=== PATIENT | female | born 1965 | race Caucasian/White ===

== ENCOUNTER 2020-07-27 14:35 | Emergency (ER) | payer MEDICAID, SELFPAY ==
[2020-07-27 14:45] VITALS: BP 133/72; PULSE 95; RESP 17; TEMP 36.8; O2SAT 100; BMI 36.6
--- NOTE | 2020-07-27 15:16 | XR_ITS ---
EXAMINATION: XR CHEST CLINICAL INFORMATION: Nausea, vomiting, and upper abdominal pain COMPARISON: Chest radiograph 01/13/2019 TECHNIQUE: Frontal view of the chest was obtained. FINDINGS: Normal cardiomediastinal silhouette. Mild hypoinflation of the lungs. No focal consolidation. No pleural effusion or pneumothorax. No acute osseous abnormality. IMPRESSION: No acute disease within the chest.
--- NOTE | 2020-07-27 15:17 | ECG_ITS ---
Test Reason : VOMITTING Blood Pressure : / mmHG Vent. Rate : 082 BPM Atrial Rate : 082 BPM P-R Int : 140 ms QRS Dur : 078 ms QT Int : 358 ms P-R-T Axes : 053 024 022 degrees QTc Int : 418 ms Normal sinus rhythm Normal ECG When compared with ECG of 13-JAN-2019 10:29, T wave inversion no longer evident in Anterior leads Referred By: Savanna Rosenberg Electronically Signed By:AZAEL PIZANO MD
--- NOTE | 2020-07-27 15:17 | CT_ITS ---
EXAMINATION: CT ABDOMEN AND PELVIS WITH CONTRAST CLINICAL INFORMATION: pt c n/v and upper abd pain c black stools x 2 weeks COMPARISON: 03/31/2019 TECHNIQUE: Multidetector volumetric imaging was performed from the superior aspect of the liver through the pubic symphysis following administration of 85 cc of Omnipaque intravenous contrast Sagittal and coronal reformatted images were obtained on the technologist workstation.. This CT examination was performed using dose optimization techniques as appropriate, variously including the following: *Automated exposure control *Adjustment of mA and/or kV according to patient size (this includes techniques or standardized protocols for targeted exams where dose is matched to indication/reason for exam; i.e. extremities or head) *Use of iterative reconstruction technique DLP: 784 mGy-cm FINDINGS: LUNG BASES: Minimal dependent atelectasis. Small hiatal hernia. LIVER, GALLBLADDER, AND BILIARY TREE: The liver is normal in size, shape, and attenuation. No focal hepatic lesion or biliary ductal dilatation is present. Gallbladder surgically absent. PANCREAS: Unremarkable. SPLEEN: Unremarkable. ADRENAL GLANDS: Unremarkable. KIDNEYS AND URETERS: The kidneys are normal in size, shape, and attenuation. No hydronephrosis, hydroureter, or calculi seen. No perinephric stranding. BLADDER: Unremarkable. GASTROINTESTINAL TRACT: The small and large bowel are unremarkable. The appendix is unremarkable. ABDOMINAL WALL: No significant hernia is appreciated. LYMPHOVASCULAR STRUCTURES: No lymphadenopathy. The aorta is unremarkable. PELVIC VISCERA: Surgically absent OSSEOUS STRUCTURES: Unremarkable. IMPRESSION: No acute intra-abdominal process seen. No acute abnormality seen within the visualized bowel. Chronic appearing and postoperative changes as described.
--- NOTE | 2020-07-27 16:30 | PC.NURSE ---
RN AT BEDSIDE ATTEMPTING IV ACCESS THROUGH ULTRA SOUND GUIDE, TWO ATTEMPTS UNSUCCESSFUL. WILL CONTINUE TO TRY FOR ACCESS.
[2020-07-27 16:34] LABS: Appearance Urine CLEAR; Color Urine YELLOW; Glucose Urine UA NEG (NEG); Leukocyte Esterase Urine NEG (NEG); Nitrite Urine NEG (NEG); PH 5.5 (5.0-8.0); Specific Gravity - Urine 1.025 (1.005-1.025); Urine Blood NEG (NEG); Urine Ketones NEG (NEG); Urine Protein NEG (NEG-TRACE)
--- NOTE | 2020-07-27 16:43 | ED_ITS ---
HPI - Abdominal Pain General Chief Complaint: Nausea/Vomiting/Diarrhea Stated Complaint: vomiting blood Time Seen by Provider: 07/27/20 14:59 Source: patient Mode of arrival: ambulatory Limitations: no limitations History of Present Illness HPI narrative: 55yoF c PMHx of gastric ulcers, abnormal liver enzymes, diabetes, hypertension and seizure disorder presenting to the ED with complaints of nausea vomiting and upper abdominal pain with associated black colored stools for the past 2 weeks. Reports she was recently seen at [facility] and only had IV blood work done no imaging. Denies being on any blood thinners. Related Data Previous Rx's Medication Instructions Recorded omeprazole 40 mg PO DAILY #30 cap 07/27/20 ondansetron HCl [Zofran] 4 mg PO Q6H PRN #10 tab 07/27/20 oxycodone 5 mg PO Q8H PRN #10 tab 07/27/20 Allergies Allergy/AdvReac Type Severity Reaction Status Date / Time azithromycin [Azithromycin] Allergy Severe ANGIOEDEMA Verified 07/27/20 18:05 Xanthines [XANTHINES] Allergy Intermediate UNKNOWN Verified 07/27/20 18:05 divalproex sodium Allergy Mild RASH Verified 07/27/20 18:05 [From Depakote] sumatriptan [From Imitrex] Allergy Mild RASH Verified 07/27/20 18:05 acetaminophen Allergy Unknown ANGIOEDEMA Verified 07/27/20 18:05 [From Darvocet-N 100] Barbiturates [BARBITURATES] Allergy Unknown UNKNOWN Verified 07/27/20 18:05 butalbital [From Fioricet] Allergy Unknown RASH Verified 07/27/20 18:05 caffeine [From Fioricet] Allergy Unknown RASH Verified 07/27/20 18:05 codeine [Codeine] Allergy Unknown RASH Verified 07/27/20 18:05 dichloralphenazone Allergy Unknown ANGIOEDEMA Verified 07/27/20 18:05 [From MIDRIN] dihydrocodeine Allergy Unknown UNKNOWN Verified 07/27/20 18:05 [From PANLOR SS] gabapentin [GABAPENTIN] Allergy Unknown UNKNOWN Verified 07/27/20 18:05 latex [Latex] Allergy Unknown RASH Verified 07/27/20 18:05 levetiracetam [From KEPPRA] Allergy Unknown UNKNOWN Verified 07/27/20 18:05 metoprolol [From LOPRESSOR] Allergy Unknown UNKNOWN Verified 07/27/20 18:05 mirtazapine [From REMERON] Allergy Unknown UNKNOWN Verified 07/27/20 18:05 nitrofurantoin Allergy Unknown UNKNOWN Verified 07/27/20 18:05 [From MACROBID] phenytoin [From DILANTIN] Allergy Unknown UNKNOWN Verified 07/27/20 18:05 prednisone [PREDNISONE] Allergy Unknown UNKNOWN Verified 07/27/20 18:05 quetiapine [From SEROQUEL] Allergy Unknown HALLUCINATI Verified 07/27/20 18:05 ONS sulfamethoxazole Allergy Unknown UNKNOWN Verified 07/27/20 18:05 [From BACTRIM] topiramate [From TOPAMAX] Allergy Unknown UNKNOWN Verified 07/27/20 18:05 trimethoprim [From BACTRIM] Allergy Unknown UNKNOWN Verified 07/27/20 18:05 zinc [From MEDIZINC] Allergy Unknown UNKNOWN Verified 07/27/20 18:05 ibuprofen [From Motrin] AdvReac Mild GI BLEED Verified 07/27/20 18:05 naproxen [Naproxen] AdvReac Mild GI BLEED Verified 07/27/20 18:05 aspirin [Aspirin] AdvReac Unknown GI BLEED Verified 07/27/20 18:05 From Imitrex Allergy Mild RASH Uncoded 06/27/20 15:56 From Compazine Allergy Unknown ANGIOEDEMA Uncoded 06/27/20 15:56 From Darvocet-N 100 Allergy Unknown ANGIOEDEMA Uncoded 06/27/20 15:56 From DHE Allergy Unknown ANAPHYLAXIS Uncoded 06/27/20 15:56 From Flexeril Allergy Unknown CHEST PAIN Uncoded 06/27/20 15:56 From MIDRIN Allergy Unknown ANGIOEDEMA Uncoded 06/27/20 15:56 From Reglan Allergy Unknown ANGIOEDEMA Uncoded 06/27/20 15:56 From Toradol Allergy Unknown ANGIOEDEMA Uncoded 06/27/20 15:56 From Ultram Allergy Unknown RASH Uncoded 06/27/20 15:56 SULFATE Allergy Unknown UNKNOWN Uncoded 06/27/20 15:56 Review of Systems Review of Systems Constitutional : No Weight loss, No Fever, No Chills, No Night Sweats, No Fatigue, No Malaise ENT/Mouth: No ear pain, No sore throat, No Difficulty swallowing Cardiovascular : No Chest Pain, No SOB, No Dyspnea on Exertion, No Orthopnea, No Edema, No Palpitations Respiratory : No Cough, No Sputum, No Wheezing, No Dyspnea Gastrointestinal : No Diarrhea, No Hematochezia Genitourinary : No irregular bleeding, No Dysuria, No Urinary Frequency, No Hematuria, No Urinary Incontinence, No Urgency, No Flank Pain Musculoskeletal : No joint pain, No Myalgias, No Joint Swelling Skin : No Skin Lesions, No rash Neuro : No Weakness, No Numbness, No Paresthesias, No Loss of Consciousness, No Dizziness, No Headache Psych : No Social Issues, Heme/Lymph: No Bruising, No Bleeding,No Lymphadenopathy Endocrine : No Polyuria, No Polydipsia, No Temperature Intolerance Yes all other systems are reviewed and are negative Physical Exam Vital Signs: Vital Signs: Vital Signs Temp Pulse Resp BP Pulse Ox 07/27/20 17:11 18 07/27/20 17:08 98.8 F 77 18 133/67 100 07/27/20 14:45 98.3 F 95 17 133/72 100 Body Mass Index 36.6 Vital signs have been reviewed as normal and appeared to be correct. Blood pressure normal. Heart rate normal. Respiration rate normal. Temperature normal. Oxygen saturation normal. Appearance: Alert. Oriented X3. No acute distress. Head: Normal external exam. Normocephalic. Atraumatic. No West signs noted. No raccoon eyes noted Eyes: PERRLA. EOMI. Conjunctiva and sclera normal. Eyelids normal. ENT: EAC normal. TM's Normal. Pharynx normal. Uvula midline. Moist mucous membranes. No trismus noted. No drooling noted. No muffled voice noted. Neck: Normal inspection. Neck supple. FROM. No adenopathy. Thyroid Normal. No meningeal signs. No neck mass noted. CVS: Normal heart rate and rhythm. Heart sound normal. No murmurs noted. Pulses normal throughout. Respiratory: No respiratory distress. Painless inspiration. Breath sounds normal. No wheezes/rales/rhonchi noted. Chest nontender. No accessory muscle usage noted or decreased air movement noted. Abdomen: Soft. TTP of upper abdomen. Bowel sounds normal in all 4 quadrants. No distention noted. No organomegaly noted. No visible injury noted. Back: No CVA tenderness. Full range of motion noted. Skin: Skin warm and dry. Normal skin color. Normal skin turgor. No rashes/lesions/lacerations noted. Extremities: No lower extremity edema. Extremities exhibit normal range of motion. Extremities nontender. Neuro: Oriented X 3. No motor deficit. No sensory deficit. Reflexes normal. Course Course Course Narrative: 55yoF c PMHx of gastric ulcers, abnormal liver enzymes, diabetes, hypertension and seizure disorder presenting to the ED with complaints of nausea vomiting and upper abdominal pain with associated black colored stools for the past 2 weeks. - Plan: Labs, CT scan of abd/pelvis c IV contrast. Perform a stool occult. Then provide GI cocktail and 4 mg of zofran and 4 mg of morphine. then re-evaluate. Reevaluation(s) Reevaluation #1: All labs within normal limits. CT scan within normal limits no acute processes noted. EKG normal sinus rhythm no acute ischemic changes noted. Chest x-ray within normal limits no acute processes noted. Patient is now tolerating p.o. at this time. Will DC home with symptomatic treatment along with instructions return if any new or worsening symptoms and to follow-up with her GI and her PCP. Patient understands agrees with this plan. MDM - Abdominal Pain MDM Narrative Medical decision making narrative: Gastric ulcer vs Viral syndrome vs Diverticulitis Medical Records Attestation: I reviewed the patient's medical records. Lab Data Attestation: I reviewed the patient's lab results. Result diagrams: 07/27/20 16:55 07/27/20 16:27 Labs: Lab Results 07/27/20 07/27/20 07/27/20 Range/Units 16:27 16:27 16:27 WBC (4.8-10.8) X10*3/uL RBC (4.20-5.50) X10*6/uL Hgb (12.0-16.0) g/dl Hct (37-47) % MCV (80-98) fL MCH (27.0-33.0) pg MCHC (31.0-35.0) g/dl RDW (11.0-16.0) % Plt Count (160-400) X10*3/uL MPV (9.4-12.3) fL Immature Gran % (Auto) (0.0-0.4) % Neut % (Auto) (45-73) % Lymph % (Auto) (20-40) % Harrison % (Auto) (2-11) % Eos % (Auto) (0-4) % Baso % (Auto) (0-2) % Lymph # (Auto) (1.2-4.9) X10*3/uL Harrison # (Auto) (0.1-1.2) X10*3/uL Eos # (Auto) (0.0-0.4) X10*3/uL Baso # (Auto) (0.0-0.2) X10*3/uL Abs Immat Gran (auto) (0.00-0.03) X10*3/uL Absolute Neuts (auto) (2.0-8.3) X10*3/uL Absolute Nucleated RBC (0.0-0.012) X10*3/uL Nucleated RBC % (auto) (0.0-0.2) /100WBC PT (10.8-13.0) SEC INR (0.9-1.1) Sodium 140 (135-145) mmol/L Potassium 4.2 (3.3-5.1) mmol/l Chloride 108 (96-108) mmol/L Carbon Dioxide 23 (22-29) mmol/L Anion Gap 13 (12-20) BUN 14 (9-16) mg/dL Creatinine 0.80 (0.5-1.4) mg/dL Estim Creat Clear Calc 85.3 Estimated GFR > 60 Random Glucose 82 (60-115) mg/dL Calcium 9.2 (8.4-10.2) mg/dL Magnesium 2.1 (1.6-2.6) mg/dL Total Bilirubin 0.4 (0.0-1.0) mg/dL Direct Bilirubin < 0.2 (0.0-0.5) mg/dL AST 15 (5-31) U/L ALT 15 (0-31) U/L Alkaline Phosphatase 119 H (39-117) U/L Troponin I High Sens (<3.5-17.0) ng/L Total Protein 7.2 (6.5-8.0) g/dL Albumin 4.1 (3.5-5.0) g/dL Lipase 73 (8-78) U/L Urine Color YELLOW Urine Appearance CLEAR Urine pH 5.5 (5.0-8.0) Ur Specific [place] 1.025 (1.005-1.025) Urine Protein NEG (NEG-TRACE) MG/DL Urine Glucose (UA) NEG (NEG) MG/DL Urine Ketones NEG (NEG) MG/DL Urine Blood NEG (NEG) Urine Nitrite NEG (NEG) Ur Leukocyte Esterase NEG (NEG) Stool Occult Blood (NEG) 07/27/20 07/27/20 07/27/20 Range/Units 16:27 16:55 16:55 WBC 7.5 (4.8-10.8) X10*3/uL RBC 4.74 (4.20-5.50) X10*6/uL Hgb 13.2 (12.0-16.0) g/dl Hct 41.3 (37-47) % MCV 87.1 (80-98) fL MCH 27.8 (27.0-33.0) pg MCHC 32.0 (31.0-35.0) g/dl RDW 14.3 (11.0-16.0) % Plt Count 258 (160-400) X10*3/uL MPV 12.0 (9.4-12.3) fL Immature Gran % (Auto) 0.1 (0.0-0.4) % Neut % (Auto) 56.5 (45-73) % Lymph % (Auto) 30.4 (20-40) % Harrison % (Auto) 7.3 (2-11) % Eos % (Auto) 4.9 H (0-4) % Baso % (Auto) 0.8 (0-2) % Lymph # (Auto) 2.3 (1.2-4.9) X10*3/uL Harrison # (Auto) 0.6 (0.1-1.2) X10*3/uL Eos # (Auto) 0.4 (0.0-0.4) X10*3/uL Baso # (Auto) 0.1 (0.0-0.2) X10*3/uL Abs Immat Gran (auto) 0.01 (0.00-0.03) X10*3/uL Absolute Neuts (auto) 4.3 (2.0-8.3) X10*3/uL Absolute Nucleated RBC 0.000 (0.0-0.012) X10*3/uL Nucleated RBC % (auto) 0.0 (0.0-0.2) /100WBC PT 13.1 H (10.8-13.0) SEC INR 1.1 (0.9-1.1) Sodium (135-145) mmol/L Potassium (3.3-5.1) mmol/l Chloride (96-108) mmol/L Carbon Dioxide (22-29) mmol/L Anion Gap (12-20) BUN (9-16) mg/dL Creatinine (0.5-1.4) mg/dL Estim Creat Clear Calc Estimated GFR Random Glucose (60-115) mg/dL Calcium (8.4-10.2) mg/dL Magnesium (1.6-2.6) mg/dL Total Bilirubin (0.0-1.0) mg/dL Direct Bilirubin (0.0-0.5) mg/dL AST (5-31) U/L ALT (0-31) U/L Alkaline Phosphatase (39-117) U/L Troponin I High Sens < 3.5 (<3.5-17.0) ng/L Total Protein (6.5-8.0) g/dL Albumin (3.5-5.0) g/dL Lipase (8-78) U/L Urine Color Urine Appearance Urine pH (5.0-8.0) Ur Specific [place] (1.005-1.025) Urine Protein (NEG-TRACE) MG/DL Urine Glucose (UA) (NEG) MG/DL Urine Ketones (NEG) MG/DL Urine Blood (NEG) Urine Nitrite (NEG) Ur Leukocyte Esterase (NEG) Stool Occult Blood (NEG) 07/27/20 Range/Units 17:13 WBC (4.8-10.8) X10*3/uL RBC (4.20-5.50) X10*6/uL Hgb (12.0-16.0) g/dl Hct (37-47) % MCV (80-98) fL MCH (27.0-33.0) pg MCHC (31.0-35.0) g/dl RDW (11.0-16.0) % Plt Count (160-400) X10*3/uL MPV (9.4-12.3) fL Immature Gran % (Auto) (0.0-0.4) % Neut % (Auto) (45-73) % Lymph % (Auto) (20-40) % Harrison % (Auto) (2-11) % Eos % (Auto) (0-4) % Baso % (Auto) (0-2) % Lymph # (Auto) (1.2-4.9) X10*3/uL Harrison # (Auto) (0.1-1.2) X10*3/uL Eos # (Auto) (0.0-0.4) X10*3/uL Baso # (Auto) (0.0-0.2) X10*3/uL Abs Immat Gran (auto) (0.00-0.03) X10*3/uL Absolute Neuts (auto) (2.0-8.3) X10*3/uL Absolute Nucleated RBC (0.0-0.012) X10*3/uL Nucleated RBC % (auto) (0.0-0.2) /100WBC PT (10.8-13.0) SEC INR (0.9-1.1) Sodium (135-145) mmol/L Potassium (3.3-5.1) mmol/l Chloride (96-108) mmol/L Carbon Dioxide (22-29) mmol/L Anion Gap (12-20) BUN (9-16) mg/dL Creatinine (0.5-1.4) mg/dL Estim Creat Clear Calc Estimated GFR Random Glucose (60-115) mg/dL Calcium (8.4-10.2) mg/dL Magnesium (1.6-2.6) mg/dL Total Bilirubin (0.0-1.0) mg/dL Direct Bilirubin (0.0-0.5) mg/dL AST (5-31) U/L ALT (0-31) U/L Alkaline Phosphatase (39-117) U/L Troponin I High Sens (<3.5-17.0) ng/L Total Protein (6.5-8.0) g/dL Albumin (3.5-5.0) g/dL Lipase (8-78) U/L Urine Color Urine Appearance Urine pH (5.0-8.0) Ur Specific [place] (1.005-1.025) Urine Protein (NEG-TRACE) MG/DL Urine Glucose (UA) (NEG) MG/DL Urine Ketones (NEG) MG/DL Urine Blood (NEG) Urine Nitrite (NEG) Ur Leukocyte Esterase (NEG) Stool Occult Blood NEG (NEG) Imaging Data CT scan - abdomen: Attestation: I personally reviewed and interpreted this imaging study as follows: Radiologist's impression: IMPRESSION: No acute intra-abdominal process seen. No acute abnormality seen within the visualized bowel. Chronic appearing and postoperative changes as described. Chest x-ray: Attestation: I personally reviewed and interpreted this imaging study as follows: Radiologist's impression: IMPRESSION: No acute disease within the chest. ECG Data Attestation: I personally reviewed and interpreted this ECG as follows: ECG interpretation date: 07/27/20 ECG interpretation time: 15:27 Prior ECG tracings: available for review Interpretation: EKG with normal sinus rhythm with a ventricular rate of 82 with a normal PA interval and normal QRS duration with a normal QT/ QTC interval. No ST elevations or depressions. No acute ischemic changes. similar compared to the January of 2019 EKG. Discharge Plan Discharge Clinical Impression: Gastric ulcer Patient Disposition: Home, Self-Care Instructions: Diet for Stomach Ulcers and Gastritis (ED) Additional Instructions: Follow-up with your primary care provider and medical pathologist and return if any new or worsening symptoms. Prescriptions: New oxycodone 5 mg tablet 5 mg PO Q8H PRN (Reason: pain) Qty: 10 RF: 0 omeprazole 40 mg capsule,delayed release(DR/EC) 40 mg PO DAILY Qty: 30 RF: 0 ondansetron HCl [Zofran] 4 mg tablet 4 mg PO Q6H PRN (Reason: nausea and vomiting) Qty: 10 RF: 0 Discharge Date/Time: 07/27/20 18:53 Print Language: Martiniquais [facility] Past Medical History Attestation statement: The following information was validated with the patient. Medical History Abnormal liver enzymes Diabetes Gastric ulcer HTN (hypertension) Seizure Social History Social History Alcohol intake: never Smoking Status: Never smoker Use of substances other than those prescribed or required for medical reasons: Yes Substance Use Type: Marijuana Advance Directives: No Advance Directives Information Provided: No
[2020-07-27 17:00] LABS: Alanine Aminotransferase 15 U/L (0-31); Albumin Level 4.1 g/dL (3.5-5.0); Alkaline Phosphatase 119 U/L (39-117); Anion Gap 13 (12-20); Aspartate Amino Transferase 15 U/L (5-31); Bilirubin Direct < 0.2 mg/dL (0.0-0.5); Bilirubin Total 0.4 mg/dL (0.0-1.0); Blood Urea Nitrogen 14 mg/dL (9-16); Calcium 9.2 mg/dL (8.4-10.2); Carbon Dioxide 23 mmol/L (22-29); Chloride 108 mmol/L (96-108); Creatinine Clr Calc Pharmacy 85.3; Estimated Glomerular Filt Rate > 60; Glucose Random 82 mg/dL (60-115); Lipase 73 U/L (8-78); Magnesium 2.1 mg/dL (1.6-2.6); Potassium 4.2 mmol/l (3.3-5.1); Sodium 140 mmol/L (135-145); Total Protein 7.2 g/dL (6.5-8.0)
[2020-07-27] MEDS: ondansetron HCL 4 MG/2 ML VIAL IVPUSH (17:00)
[2020-07-27] MEDS: Famotidine/PF 20 MG/2 ML VIAL IVPUSH (17:00)
[2020-07-27] MEDS: 0.9 % Sodium Chloride 1,000 ML 999 ML IVCONT (17:00)
[2020-07-27 17:01] LABS: MANUAL DIFF FLAG NO
[2020-07-27 17:02] LABS: Basophils Absolute Auto 0.1 X10*3/uL (0.0-0.2); Basophils Percent Auto 0.8 % (0-2); Eosinophils Absolute Auto 0.4 X10*3/uL (0.0-0.4); Eosinophils Percent Auto 4.9 % (0-4); Hematocrit 41.3 % (37-47); Hemoglobin 13.2 g/dl (12.0-16.0); Imm Gran Abs Auto 0.01 X10*3/uL (0.00-0.03); Imm Gran Pct Auto 0.1 % (0.0-0.4); Lymphocytes Absolute Auto 2.3 X10*3/uL (1.2-4.9); Lymphocytes Percent Auto 30.4 % (20-40); Mean Corpuscular Hemoglobin 27.8 pg (27.0-33.0); Mean Corpuscular Volume 87.1 fL (80-98); Monocytes Absolute Auto 0.6 X10*3/uL (0.1-1.2); Monocytes Percent Auto 7.3 % (2-11); Neutrophils Absolute Auto 4.3 X10*3/uL (2.0-8.3); Neutrophils Percent Auto 56.5 % (45-73); Platelet Count 258 X10*3/uL (160-400); Red Blood Count 4.74 X10*6/uL (4.20-5.50); Red Cell Distribution Width 14.3 % (11.0-16.0); White Blood Count 7.5 X10*3/uL (4.8-10.8)
[2020-07-27 17:06] LABS: Troponin-I High Sensitivity < 3.5 ng/L (<3.5-17.0)
[2020-07-27 17:08] VITALS: BP 133/67; PULSE 77; RESP 18; TEMP 37.1; O2SAT 100
[2020-07-27 17:09] LABS: INTERNATIONAL NORM RATIO 1.1 (0.9-1.1); Prothrombin Time 13.1 SEC (10.8-13.0)
[2020-07-27 17:11] VITALS: RESP 18
[2020-07-27] MEDS: Morphine Sulfate 4 MG/ML CARTRIDGE IVPUSH (17:11)
[2020-07-27 17:18] LABS: OBS1 NEG (NEG)
[2020-07-27 17:19] LABS: OBS Int Ctl Valid YES
[2020-07-27] MEDS: iohexoL 350 MG/ML 100 ML INFUS..BTL IV (17:43)
--- NOTE | 2020-07-27 18:13 | PC.NURSE ---
pt workup unremarkable, shukri hoff in to update pt on plan of care. pt to be discharged home w meds.
[2020-07-27] MEDS: oxyCODONE HCl Immed Release 5 MG TABLET PO (18:46)
== END 2020-07-27 18:53 | disposition home or self-care (01) ==
PROVIDERS: Physician Assistant Medical; Emergency Provider Emergency Medicine
DX: K25.9 Gastric ulcer, unspecified as acute or chronic, without hemorrhage or perforation (principal); E11.9 Type 2 diabetes mellitus without complications; I10 Essential (primary) hypertension; F12.90 Cannabis use, unspecified, uncomplicated; Z79.899 Other long term (current) drug therapy
CPT/HCPCS: 36415; 71045; 74177; 80048; 80076; 81003; 82272; 83690; 83735; 84484; 85025; 85610; 93005; 96361; 96374; 96375; 99284; J2270; J2405; J2765

== ENCOUNTER 2020-07-31 12:23 | Emergency (ER) | payer MEDICAID, SELFPAY ==
[2020-07-31] VITALS (7 sets, daily range): BP systolic 114–133; BP diastolic 58–76; PULSE 79–88; RESP 16–78; TEMP 36.1–36.8; O2SAT 97–100; BMI 32.9; BMI 34.7
--- NOTE | 2020-07-31 16:26 | CT_ITS ---
EXAMINATION: CT ABDOMEN AND PELVIS WITHOUT CONTRAST CLINICAL INFORMATION: 55-year-old female patient with right lower quadrant abdominal pain. COMPARISON: CT of the abdomen and pelvis performed 4 days ago. (No acute). TECHNIQUE: Multidetector volumetric imaging was performed from the superior aspect of the liver through the pubic symphysis. Sagittal and coronal reformatted images were obtained on the technologist's workstation. This CT examination was performed using dose optimization techniques as appropriate, variously including the following: *Automated exposure control *Adjustment of mA and/or kV according to patient size (this includes techniques or standardized protocols for targeted exams where dose is matched to indication/reason for exam; i.e. extremities or head) *Use of iterative reconstruction technique DLP: 793 mGy-cm FINDINGS: AIRLINE COUNTER AGENT: There is no evidence of intestinal obstruction. Patient's gallbladder has been surgically removed. There is increased burden of formed stool in the right and transverse colon. LUNG BASES: The visualized lung bases are unremarkable. There is a small hiatal hernia containing fat and tiny lymph nodes. LIVER, GALLBLADDER, AND BILIARY TREE: The liver is normal in size, shape, and attenuation. No focal hepatic lesion or biliary ductal dilatation is present. The gallbladder has been surgically removed. PANCREAS: Unremarkable. SPLEEN: Unremarkable. ADRENAL GLANDS: Unremarkable. KIDNEYS AND URETERS: The kidneys are normal in size, shape, and attenuation. No hydronephrosis, hydroureter, or calculi seen. No perinephric stranding. BLADDER: Unremarkable. GASTROINTESTINAL TRACT: The small and large bowel are unremarkable. No inflammatory disease is seen in the vicinity of the right lower quadrant. ABDOMINAL WALL: No significant hernia is appreciated. LYMPH NODES: Normal. Small mesenteric nodes are present in the right lower quadrant. VASCULAR: Unremarkable. PELVIC VISCERA: Uterus has been removed. OSSEOUS STRUCTURES: An hemangioma is located in the vertebral body at T11. IMPRESSION: Increased burden of formed stool in the right and transverse colon.
--- NOTE | 2020-07-31 16:32 | ED.ABDPAIN ---
HPI - Abdominal Pain General Chief Complaint: Abdominal Pain Stated Complaint: abd pain Time Seen by Provider: 07/31/20 16:25 Source: patient Mode of arrival: ambulatory Limitations: no limitations History of Present Illness HPI narrative: 55 years old female came in today with abdominal pain for the past 3 weeks, and then having nausea, vomiting, patient also been taking Maalox and reporting black stool. Patient was seen in the emergency department last week and was evaluated for same symptoms with a negative workup. Related Data Previous Rx's Medication Instructions Recorded omeprazole 40 mg PO DAILY #30 cap 07/27/20 ondansetron HCl [Zofran] 4 mg PO Q6H PRN #10 tab 07/27/20 oxycodone 5 mg PO Q8H PRN #10 tab 07/27/20 oxycodone 5 mg PO BID PRN #7 cap 07/31/20 Allergies Allergy/AdvReac Type Severity Reaction Status Date / Time azithromycin [Azithromycin] Allergy Severe ANGIOEDEMA Verified 07/27/20 18:05 Xanthines [XANTHINES] Allergy Intermediate UNKNOWN Verified 07/27/20 18:05 divalproex sodium Allergy Mild RASH Verified 07/27/20 18:05 [From Depakote] sumatriptan [From Imitrex] Allergy Mild RASH Verified 07/27/20 18:05 acetaminophen Allergy Unknown ANGIOEDEMA Verified 07/27/20 18:05 [From Darvocet-N 100] Barbiturates [BARBITURATES] Allergy Unknown UNKNOWN Verified 07/27/20 18:05 butalbital [From Fioricet] Allergy Unknown RASH Verified 07/27/20 18:05 caffeine [From Fioricet] Allergy Unknown RASH Verified 07/27/20 18:05 codeine [Codeine] Allergy Unknown RASH Verified 07/27/20 18:05 dichloralphenazone Allergy Unknown ANGIOEDEMA Verified 07/27/20 18:05 [From MIDRIN] dihydrocodeine Allergy Unknown UNKNOWN Verified 07/27/20 18:05 [From PANLOR SS] gabapentin [GABAPENTIN] Allergy Unknown UNKNOWN Verified 07/27/20 18:05 latex [Latex] Allergy Unknown RASH Verified 07/27/20 18:05 levetiracetam [From KEPPRA] Allergy Unknown UNKNOWN Verified 07/27/20 18:05 metoprolol [From LOPRESSOR] Allergy Unknown UNKNOWN Verified 07/27/20 18:05 mirtazapine [From REMERON] Allergy Unknown UNKNOWN Verified 07/27/20 18:05 nitrofurantoin Allergy Unknown UNKNOWN Verified 07/27/20 18:05 [From MACROBID] phenytoin [From DILANTIN] Allergy Unknown UNKNOWN Verified 07/27/20 18:05 prednisone [PREDNISONE] Allergy Unknown UNKNOWN Verified 07/27/20 18:05 quetiapine [From SEROQUEL] Allergy Unknown HALLUCINATI Verified 07/27/20 18:05 ONS sulfamethoxazole Allergy Unknown UNKNOWN Verified 07/27/20 18:05 [From BACTRIM] topiramate [From TOPAMAX] Allergy Unknown UNKNOWN Verified 07/27/20 18:05 trimethoprim [From BACTRIM] Allergy Unknown UNKNOWN Verified 07/27/20 18:05 zinc [From MEDIZINC] Allergy Unknown UNKNOWN Verified 07/27/20 18:05 ibuprofen [From Motrin] AdvReac Mild GI BLEED Verified 07/27/20 18:05 naproxen [Naproxen] AdvReac Mild GI BLEED Verified 07/27/20 18:05 aspirin [Aspirin] AdvReac Unknown GI BLEED Verified 07/27/20 18:05 From Imitrex Allergy Mild RASH Uncoded 06/27/20 15:56 From Compazine Allergy Unknown ANGIOEDEMA Uncoded 06/27/20 15:56 From Darvocet-N 100 Allergy Unknown ANGIOEDEMA Uncoded 06/27/20 15:56 From DHE Allergy Unknown ANAPHYLAXIS Uncoded 06/27/20 15:56 From Flexeril Allergy Unknown CHEST PAIN Uncoded 06/27/20 15:56 From MIDRIN Allergy Unknown ANGIOEDEMA Uncoded 06/27/20 15:56 From Reglan Allergy Unknown ANGIOEDEMA Uncoded 06/27/20 15:56 From Toradol Allergy Unknown ANGIOEDEMA Uncoded 06/27/20 15:56 From Ultram Allergy Unknown RASH Uncoded 06/27/20 15:56 SULFATE Allergy Unknown UNKNOWN Uncoded 06/27/20 15:56 Review of Systems Review of Systems Allergic/Immunologic: Reports no additional allergic/immunologic complaints Yes all other systems are reviewed and are negative Constitutional: Reports as per HPI and Reports no additional constitutional complaints Eyes: Reports as per HPI and Reports no additional eye complaints Reports system reviewed and no additional complaints, except as documented Cardiovascular: Reports as per HPI and Reports no additional cardiovascular complaints Respiratory: Reports as per HPI and Reports no additional respiratory complaints Gastrointestinal: Reports as per HPI and Reports no additional gastrointestinal complaints Genitourinary: Reports no additional female genitourinary complaints Musculoskeletal: Reports no additional musculoskeletal complaints Skin/Breast: Reports system reviewed and no additional complaints, except as docu Reports system reviewed and no additional complaints, except as documented and Reports Abnormal speech present Psychiatric: Reports no additional psychiatric complaints Endocrine: Reports no additional endocrine complaints Hematologic/Lymphatic: Reports no additional hematologic/lymphatic complaints Allergic/Immunologic: Reports no additional allergic/immunologic complaints Physical Exam Vital Signs: Vital Signs: Vital Signs Temp Pulse Resp BP Pulse Ox 07/31/20 18:47 16 07/31/20 18:00 78 H 131/62 07/31/20 17:33 98.0 F 82 16 114/58 L 99 07/31/20 16:23 98.3 F 79 16 121/64 100 07/31/20 15:08 96.9 F 88 18 133/76 100 Body Mass Index 34.7 Const: General: cooperative, healthy appearing, comfortable, no acute distress, well developed, alert, awake and Physically active Orientation/consciousness: oriented to person, oriented to place and oriented to time HENMT: Head: Yes normal to inspection, Yes No palpable skull fracture present, Yes normocephalic and Yes atraumatic Eyes: General: appearance normal, both eyes and all related structures Visual Jose: normal visual jose by confrontation Alignment and Position: alignment normal and position normal Periorbital: periorbital findings normal Eyelids: Yes eyelids normal Conjunctivae: conjunctivae normal Sclerae: sclerae normal Corneas: corneas normal Pupils: Equal, round and reactive pupils present and Pupils normal by confrontation EOM: EOMs intact bilaterally Neck: Neck: Yes normal visual inspection, Yes full ROM, Yes no lymphadenopathy, Yes no meningeal signs, Yes trachea midline and Yes supple Chest: Chest palpation & inspection: normal inspection of the chest and normal palpation of entire chest wall Resp: Effort & Inspection: normal respiratory effort and able to speak in complete sentences Auscultation: clear to auscultation bilaterally Back/Spine/Pelvis: Cervical Spine: cervical ROM abnormal Thoracic/Lumbar Spine: thoracic and lumbar spine normal to inspection Skin: General skin exam: no rashes or lesions noted, elasticity normal and turgor normal Neuro: General: oriented to person, oriented to place, oriented to time, gait normal, tone normal, moves all extremities, no meningeal signs and no focal motor deficits Cranial nerves: Yes CN's II-XII intact bilaterally, Yes Facial sensation intact/muscles of mastication intact and Yes Equal, round and reactive pupils present Cognition (Neuro): normal cognition Speech: Abnormal speech present Gait exam (Neuro): Normal gait present Motor exam (neuro): 5/5 motor strength present throughout Sensory Exam: Normal double simultaneous stimulation for sensation Extrem: General: Yes normal to inspection and Yes full ROM Psych: Appearance: grossly normal and well kempt MDM - Abdominal Pain MDM Narrative Medical decision making narrative: assessment and plan. This is a 55-year-old female been having chronic upper abdominal pain consistent with gastritis. 1. as patient instructed to eat small portions more frequent, and stay away from fried greasy foods or spicy foods. 2. Patient is frustrated because trying to get a dairy quality assurance officer for least 1 is September 13 ( because of the COVID situation in the whole entire country). 3. Because of the severe pain and patient has been taking everything for that gastritis pain I will prescribe few pills of oxycodone that seemed to help the patient's symptoms. Lab Data Result diagrams: 07/31/20 18:37 07/31/20 18:37 Labs: Lab Results 07/31/20 07/31/20 07/31/20 Range/Units 17:24 18:13 18:37 WBC 6.8 (4.8-10.8) X10*3/uL RBC 4.53 (4.20-5.50) X10*6/uL Hgb 12.8 (12.0-16.0) g/dl Hct 39.4 (37-47) % MCV 87.0 (80-98) fL MCH 28.3 (27.0-33.0) pg MCHC 32.5 (31.0-35.0) g/dl RDW 14.3 (11.0-16.0) % Plt Count 243 (160-400) X10*3/uL MPV 12.0 (9.4-12.3) fL Absolute Nucleated RBC 0.000 (0.0-0.012) X10*3/uL Nucleated RBC % (auto) 0.0 (0.0-0.2) /100WBC Sodium (135-145) mmol/L Potassium (3.3-5.1) mmol/l Chloride (96-108) mmol/L Carbon Dioxide (22-29) mmol/L Anion Gap (12-20) BUN (9-16) mg/dL Creatinine (0.5-1.4) mg/dL Estim Creat Clear Calc Estimated GFR Random Glucose (60-115) mg/dL Calcium (8.4-10.2) mg/dL Total Bilirubin (0.0-1.0) mg/dL Direct Bilirubin (0.0-0.5) mg/dL AST (5-31) U/L ALT (0-31) U/L Alkaline Phosphatase (39-117) U/L Total Protein (6.5-8.0) g/dL Albumin (3.5-5.0) g/dL Lipase (8-78) U/L Urine Color YELLOW Urine Appearance HAZY Urine pH 5.0 (5.0-8.0) Ur Specific [place] 1.025 (1.005-1.025) Urine Protein NEG (NEG-TRACE) MG/DL Urine Glucose (UA) NEG (NEG) MG/DL Urine Ketones NEG (NEG) MG/DL Urine Blood NEG (NEG) Urine Nitrite NEG (NEG) Ur Leukocyte Esterase NEG (NEG) Urine Test NEGATIVE (NEGATIVE) Stool Occult Blood NEG (NEG) 07/31/20 07/31/20 Range/Units 18:37 18:37 WBC (4.8-10.8) X10*3/uL RBC (4.20-5.50) X10*6/uL Hgb (12.0-16.0) g/dl Hct (37-47) % MCV (80-98) fL MCH (27.0-33.0) pg MCHC (31.0-35.0) g/dl RDW (11.0-16.0) % Plt Count (160-400) X10*3/uL MPV (9.4-12.3) fL Absolute Nucleated RBC (0.0-0.012) X10*3/uL Nucleated RBC % (auto) (0.0-0.2) /100WBC Sodium 139 (135-145) mmol/L Potassium 4.0 (3.3-5.1) mmol/l Chloride 105 (96-108) mmol/L Carbon Dioxide 23 (22-29) mmol/L Anion Gap 15 (12-20) BUN 8 L (9-16) mg/dL Creatinine 0.76 (0.5-1.4) mg/dL Estim Creat Clear Calc 87.2 Estimated GFR > 60 Random Glucose 81 (60-115) mg/dL Calcium 9.0 (8.4-10.2) mg/dL Total Bilirubin 0.3 (0.0-1.0) mg/dL Direct Bilirubin < 0.2 (0.0-0.5) mg/dL AST 19 (5-31) U/L ALT 14 (0-31) U/L Alkaline Phosphatase 119 H (39-117) U/L Total Protein 6.9 (6.5-8.0) g/dL Albumin 3.9 (3.5-5.0) g/dL Lipase 28 (8-78) U/L Urine Color Urine Appearance Urine pH (5.0-8.0) Ur Specific [place] (1.005-1.025) Urine Protein (NEG-TRACE) MG/DL Urine Glucose (UA) (NEG) MG/DL Urine Ketones (NEG) MG/DL Urine Blood (NEG) Urine Nitrite (NEG) Ur Leukocyte Esterase (NEG) Urine Test (NEGATIVE) Stool Occult Blood (NEG) Imaging Data CT scan - abdomen: Radiologist's impression: No acute intracranial pathology except Significant for constipation. Discharge Plan Discharge Clinical Impression: Gastritis Qualifiers: Gastritis type: unspecified gastritis Chronicity: chronic Gastritis bleeding: without bleeding Qualified Code(s): K29.50 - Unspecified chronic gastritis without bleeding Abdominal pain Qualifiers: Abdominal location: epigastric Qualified Code(s): R10.13 - Epigastric pain Patient Disposition: Home, Self-Care Prescriptions: New oxycodone 5 mg capsule 5 mg PO BID PRN (Reason: pain) Qty: 7 RF: 0 No Action oxycodone 5 mg tablet 5 mg PO Q8H PRN (Reason: pain) Qty: 10 RF: 0 omeprazole 40 mg capsule,delayed release(DR/EC) 40 mg PO DAILY Qty: 30 RF: 0 ondansetron HCl [Zofran] 4 mg tablet 4 mg PO Q6H PRN (Reason: nausea and vomiting) Qty: 10 RF: 0 PMFSH Past Medical History Medical History Abnormal liver enzymes Diabetes Gastric ulcer HTN (hypertension) Seizure Social History Social History Alcohol intake: never Smoking Status: Never smoker Substance Use Type: Marijuana Advance Directives: No Advance Directives Information Provided: Yes
[2020-07-31 17:37] LABS: OBS Int Ctl Valid YES; OBS1 NEG (NEG)
--- NOTE | 2020-07-31 18:09 | PC.NURSE ---
IV ATTEMPTED X 2.
[2020-07-31 18:31] LABS: Glucose Urine UA NEG (NEG); Leukocyte Esterase Urine NEG (NEG); Nitrite Urine NEG (NEG); Specific Gravity - Urine 1.025 (1.005-1.025); Urine Blood NEG (NEG); Urine Ketones NEG (NEG); Urine Protein NEG (NEG-TRACE)
[2020-07-31 18:33] LABS: Color Urine YELLOW; UPreg QC Valid YES; Urine Pregnancy NEGATIVE (NEGATIVE)
[2020-07-31 18:34] LABS: Appearance Urine HAZY
--- NOTE | 2020-07-31 18:43 | PC.NURSE ---
IV DONE BY ADDIE TEIXEIRA (ARIEL)
[2020-07-31] MEDS: Famotidine/PF 20 MG/2 ML VIAL IVPUSH (18:47)
[2020-07-31] MEDS: Morphine Sulfate 2 MG/ML CARTRIDGE 1 MG IVPUSH (18:47)
[2020-07-31] MEDS: ondansetron HCL 4 MG/2 ML VIAL IVPUSH (18:47)
[2020-07-31] MEDS: 0.9 % Sodium Chloride 1,000 ML 999 ML IVCONT (18:47)
[2020-07-31 18:51] LABS: Hematocrit 39.4 % (37-47); Hemoglobin 12.8 g/dl (12.0-16.0); Mean Corpuscular HGB Conc 32.5 g/dl (31.0-35.0); Mean Corpuscular Hemoglobin 28.3 pg (27.0-33.0); Platelet Count 243 X10*3/uL (160-400); Red Blood Count 4.53 X10*6/uL (4.20-5.50); Red Cell Distribution Width 14.3 % (11.0-16.0); White Blood Count 6.8 X10*3/uL (4.8-10.8)
[2020-07-31 19:12] LABS: Alanine Aminotransferase 14 U/L (0-31); Albumin Level 3.9 g/dL (3.5-5.0); Alkaline Phosphatase 119 U/L (39-117); Anion Gap 15 (12-20); Aspartate Amino Transferase 19 U/L (5-31); Bilirubin Direct < 0.2 mg/dL (0.0-0.5); Bilirubin Total 0.3 mg/dL (0.0-1.0); Blood Urea Nitrogen 8 mg/dL (9-16); Carbon Dioxide 23 mmol/L (22-29); Chloride 105 mmol/L (96-108); Creatinine Clr Calc Pharmacy 87.2; Estimated Glomerular Filt Rate > 60; Glucose Random 81 mg/dL (60-115); Lipase 28 U/L (8-78); Sodium 139 mmol/L (135-145); Total Protein 6.9 g/dL (6.5-8.0)
--- NOTE | 2020-07-31 19:32 | PC.NURSE ---
Patient c/o 10/10 upper abd pain and nausea. physician has seen pt and pt is aware of plan for d/c. pt requesting meds prior to d/c
== END 2020-07-31 20:30 | disposition home or self-care (01) ==
PROVIDERS: Emergency Provider Emergency Medicine
DX: K29.70 Gastritis, unspecified, without bleeding (principal); E11.9 Type 2 diabetes mellitus without complications; I10 Essential (primary) hypertension; F12.90 Cannabis use, unspecified, uncomplicated
CPT/HCPCS: 36415; 74176; 80048; 80076; 81003; 81025; 82272; 83690; 85027; 96361; 96374; 96375; 99284; J2270; J2405

== ENCOUNTER 2024-07-15 19:38 | Emergency (ER) | payer MEDICAID, SELFPAY ==
[2024-07-15 19:47] VITALS: BP 147/73; PULSE 92; RESP 18; TEMP 37.1; O2SAT 95; BMI 32.9
--- NOTE | 2024-07-15 19:52 | ED_ITS ---
HPI - General Adult General Chief complaint: General Medical Stated complaint: Sciatica/left leg feels numb Time Seen by Provider: 07/15/24 20:46 Source: patient Limitations: no limitations History of Present Illness ED Provider: Gracie Rosenberg PA-C HPI narrative: 59-year-old female with a history of chronic pain on chronic opiate therapy presents with back pain. Patient complains of ongoing low back pain, primarily on the left side. Patient states she is having radiation of pain down her left lower extremity. Patient states she often has sciatica symptoms. Denies paresthesias, weakness of lower extremities, urinary retention or bowel incontinence. There was no preceding injury, trauma, or repetitive activity, no new heavy lifting, the precipitated her worsening pain. Patient states, ?Dilaudid is the only thing that helps me?. Related Data Previous Rx's ?Medication ?Instructions ?Recorded omeprazole 40 mg capsule,delayed 40 mg PO DAILY acid reflux #30 caps 07/27/20 release ondansetron HCl 4 mg tablet 4 mg PO Q6H PRN nausea and 07/27/20 (Zofran) vomiting #10 tabs oxycodone 5 mg tablet 5 mg PO Q8H PRN pain #10 tabs 07/27/20 oxycodone 5 mg capsule 5 mg PO BID PRN pain #7 caps 07/31/20 Allergies Allergy/AdvReac Type Severity Reaction Status Date / Time azithromycin [Azithromycin] Allergy Severe ANGIOEDEMA Verified 07/15/24 19:48 Xanthines [XANTHINES] Allergy Intermediate UNKNOWN Verified 07/15/24 19:48 divalproex sodium Allergy Mild RASH Verified 07/15/24 19:48 [From Depakote] sumatriptan [From Imitrex] Allergy Mild RASH Verified 07/15/24 19:48 acetaminophen Allergy Unknown ANGIOEDEMA Verified 07/15/24 19:48 [From Darvocet-N 100] Barbiturates [BARBITURATES] Allergy Unknown UNKNOWN Verified 07/15/24 19:48 butalbital [From Fioricet] Allergy Unknown RASH Verified 07/15/24 19:48 caffeine [From Fioricet] Allergy Unknown RASH Verified 07/15/24 19:48 codeine [Codeine] Allergy Unknown RASH Verified 07/15/24 19:48 dichloralphenazone Allergy Unknown ANGIOEDEMA Verified 07/15/24 19:48 [From MIDRIN] dihydrocodeine Allergy Unknown UNKNOWN Verified 07/15/24 19:48 [From PANLOR SS] gabapentin [GABAPENTIN] Allergy Unknown UNKNOWN Verified 07/15/24 19:48 latex [Latex] Allergy Unknown RASH Verified 07/15/24 19:48 levetiracetam [From KEPPRA] Allergy Unknown UNKNOWN Verified 07/15/24 19:48 metoprolol [From LOPRESSOR] Allergy Unknown UNKNOWN Verified 07/15/24 19:48 mirtazapine [From REMERON] Allergy Unknown UNKNOWN Verified 07/15/24 19:48 nitrofurantoin Allergy Unknown UNKNOWN Verified 07/15/24 19:48 [From MACROBID] phenytoin [From DILANTIN] Allergy Unknown UNKNOWN Verified 07/15/24 19:48 prednisone [PREDNISONE] Allergy Unknown UNKNOWN Verified 07/15/24 19:48 quetiapine [From SEROQUEL] Allergy Unknown HALLUCINATI Verified 07/15/24 19:48 ONS sulfamethoxazole Allergy Unknown UNKNOWN Verified 07/15/24 19:48 [From BACTRIM] topiramate [From TOPAMAX] Allergy Unknown UNKNOWN Verified 07/15/24 19:48 trimethoprim [From BACTRIM] Allergy Unknown UNKNOWN Verified 07/15/24 19:48 zinc [From MEDIZINC] Allergy Unknown UNKNOWN Verified 07/15/24 19:48 ibuprofen [From Motrin] AdvReac Mild GI BLEED Verified 07/15/24 19:48 naproxen [Naproxen] AdvReac Mild GI BLEED Verified 07/15/24 19:48 aspirin [Aspirin] AdvReac Unknown GI BLEED Verified 07/15/24 19:48 From Imitrex Allergy Mild RASH Uncoded 07/15/24 19:48 From Compazine Allergy Unknown ANGIOEDEMA Uncoded 07/15/24 19:48 From Darvocet-N 100 Allergy Unknown ANGIOEDEMA Uncoded 07/15/24 19:48 From DHE Allergy Unknown ANAPHYLAXIS Uncoded 07/15/24 19:48 From Flexeril Allergy Unknown CHEST PAIN Uncoded 07/15/24 19:48 From MIDRIN Allergy Unknown ANGIOEDEMA Uncoded 07/15/24 19:48 From Reglan Allergy Unknown ANGIOEDEMA Uncoded 07/15/24 19:48 From Toradol Allergy Unknown ANGIOEDEMA Uncoded 07/15/24 19:48 From Ultram Allergy Unknown RASH Uncoded 07/15/24 19:48 SULFATE Allergy Unknown UNKNOWN Uncoded 07/15/24 19:48 Review of Systems Review of Systems: Yes all other systems are reviewed and are negative Constitutional: Constitutional: Denies fatigue, Denies fever(s) and Denies weakness Genitourinary: Genitourinary: Denies urinary hesitancy Musculoskeletal: Musculoskeletal: Reports back pain, Reports radiating pain into limb and Denies tingling Neurologic: Denies focal weakness, Denies tingling, Denies paresthesias and Denies weakness Endocrine: Endocrine: Denies fatigue [facility] Past Medical History Attestation statement: The following information was validated with the patient. Medical History Abnormal liver enzymes Diabetes Gastric ulcer HTN (hypertension) Seizure Social History Social History Alcohol intake: never Smoked in Last 30 Days: No Use of substances other than those prescribed or required for medical reasons: No Substance Use Type: Marijuana Advance Directives: No Advance Directives Information Provided: No Do you have a plan to hurt others: No Plan Patient : No Physical Exam ED Vital Signs: Vital Signs - 24 hr 07/15/24 19:47 07/15/24 22:32 Temperature 98.7 F 98.7 F Pulse Rate 92 92 Respiratory Rate 18 18 Blood Pressure 147/73 H 147/73 H Pulse Oximetry 95 95 Oxygen Delivery Method Room Air Room Air BMI result Body Mass Index 32.9 Const Other: Awake, appears older than stated age Orientation/consciousness: patient oriented x3 Resp Effort & Inspection: normal respiratory effort Cardio Other: Normal peripheral perfusion Skin Other: Warm dry no rash Neuro General: patient oriented x3, gait normal, no focal motor deficits and CN's II- XI intact bilaterally Extrem Other: Strength 5/5 bilateral lower extremities Psych Other: Calm Course Course Course Narrative: RME performed by Lenora Brown PA-C. Patient is a 59 year old assigned female at presenting to the emergency department with low back pain. Patient states she has chronic low back pain and tried her medications but they didn't help. Detailed physical exam and review of systems are deferred to the physician primary care sports medicine. Patient placed back in the waiting room pending room availability. Medical Decision Making Medical Decision Making MDM Narrative: 59-year-old female with a history of chronic pain on chronic opiate therapy presents with back pain. Patient complains of ongoing low back pain, primarily on the left side. Patient states she is having radiation of pain down her left lower extremity. Patient states she often has sciatica symptoms. Denies paresthesias, weakness of lower extremities, urinary retention or bowel incontinence. There was no preceding injury, trauma, or repetitive activity, no new heavy lifting, the precipitated her worsening pain. Patient states, ?Dilaudid is the only thing that helps me?. Problem: Chronic pain History: Per patient I have considered the following differential diagnoses: Lumbar radiculopathy, sciatica, cauda equina, bulging disc, malingering, medication seeking behavior Plan: Patient has chronic pain without a mechanism to explain her worsening symptoms. She is ambulatory, with a benign exam. She has no red flag signs symptoms concerning for cord compression. I told the patient I was not going to give her Dilaudid, she is exhibiting medication seeking behaviors, I have reviewed her [employer], she has multiple pain medications at home. I advised she needs to follow up with her prescriber for further pain management. Once the patient realized I was not going to give her Dilaudid, she left before I could offer other modalities to manage her discomfort. Discharge Plan Discharge Clinical Impression: Chronic bilateral low back pain Patient Disposition: Home, Self-Care Instructions: Pain Management (ED), Chronic Pain (ED) Additional Instructions: You need to follow up with your primary care provider, or the healthcare provider who manages your chronic pain. We are unable to give additional pain medication in the emergency department given your pain is chronic. There are other modalities you need to investigate to help manage your chronic discomfort. Call Wednesday to make an appointment. Prescriptions: No Action oxycodone 5 mg tablet 5 mg PO Q8H PRN (Reason: pain) Qty: 10 0RF omeprazole 40 mg capsule,delayed release(DR/EC) 40 mg PO DAILY Qty: 30 0RF ondansetron HCl [Zofran] 4 mg tablet 4 mg PO Q6H PRN (Reason: nausea and vomiting) Qty: 10 0RF oxycodone 5 mg capsule 5 mg PO BID PRN (Reason: pain) Qty: 7 0RF Interventions: ED Discharge Assessment Last Done: 07/15/24 22:32 Discharge Date/Time: 07/15/24 22:20 Print Language: Japanese
[2024-07-15 22:32] VITALS: BP 147/73; PULSE 92; RESP 18; TEMP 37.1; O2SAT 95
== END 2024-07-15 22:20 | disposition home or self-care (01) ==
PROVIDERS: Emergency Provider Emergency Medicine
DX: G89.29 Other chronic pain (principal); M54.50 Low back pain, unspecified; Z76.5 Malingerer [conscious simulation]; E11.9 Type 2 diabetes mellitus without complications; I10 Essential (primary) hypertension; Z79.891 Long term (current) use of opiate analgesic
CPT/HCPCS: 99282; 99284